=== PATIENT | male | born 1950 | race Caucasian/White ===

== ENCOUNTER → 2022-08-27 11:15 | Outpatient (BNVA) | payer OTHER, SELFPAY | PROVIDERS: Visit Provider Specialist | DX: R06.6 Hiccough (principal); Z87.81 Personal history of (healed) traumatic fracture; Z87.19 Personal history of other diseases of the digestive system | CPT/HCPCS: 99203; 99204 ==

== ENCOUNTER → 2022-12-01 12:21 | Outpatient (BNVA) | payer OTHER, SELFPAY | PROVIDERS: Visit Provider Specialist | DX: R06.6 Hiccough (principal); Z87.81 Personal history of (healed) traumatic fracture; Z87.891 Personal history of nicotine dependence | CPT/HCPCS: 99213 ==

== ENCOUNTER → 2023-05-25 09:29 | Outpatient (BNVA) | payer OTHER, SELFPAY | PROVIDERS: Visit Provider Specialist | DX: R06.6 Hiccough (principal) | CPT/HCPCS: 99213 ==

== ENCOUNTER → 2024-03-08 09:00 | Outpatient (BNVA) | payer OTHER, SELFPAY | PROVIDERS: Visit Provider Specialist | DX: I63.9 Cerebral infarction, unspecified (principal); I25.5 Ischemic cardiomyopathy; F03.92 Unspecified dementia, unspecified severity, with psychotic disturbance; F03.918 Unspecified dementia, unspecified severity, with other behavioral disturbance | CPT/HCPCS: 99214 ==

== ENCOUNTER → 2024-09-07 09:44 | Outpatient (BNVA) | payer OTHER, SELFPAY | PROVIDERS: Visit Provider Specialist | DX: I63.9 Cerebral infarction, unspecified (principal); I25.5 Ischemic cardiomyopathy | CPT/HCPCS: 99214 ==